=== PATIENT | female | born 1995 | race African-American/Black ===

== ENCOUNTER 2019-05-07 14:51 | Outpatient (CLI) | payer MEDICAID ==
[2019-05-07 15:43] LABS: APPEARANCE,URINE CLEAR; BILIRUBIN,URINE NEGATIVE (NEGATIVE); COLOR,URINE YELLOW; GLUCOSE, URINE NEGATIVE (NEGATIVE); KETONES,URINE 100 mg/dL (NEGATIVE); NITRITE,URINE NEGATIVE (NEGATIVE); PROTEIN,URINE 30 mg/dL (NEGATIVE); URINE SPECIFIC GRAVITY 1.021; UROBILINOGEN,URINE NEGATIVE mg/dL (<2.0)
[2019-05-07 15:44] LABS: LEUKOCYTE ESTERASE,URINE NEGATIVE (NEGATIVE)
[2019-05-07 15:55] LABS: BACTERIA (WET MOUNT) 4+ BACTERIA SEEN; EPITHELIALS (WET MOUNT) 4+ EPITHELIALS SEEN; T.VAGINALIS (WET MOUNT) NO TRICHOMONAS SEEN; WBCS (WET MOUNT) 1+ WBCS SEEN; YEAST (WET MOUNT) NO YEAST SEEN
[2019-05-07 15:56] LABS: URINE AMPHETAMINES SCREEN NEGATIVE; URINE BARBITURATES SCREEN NEGATIVE; URINE BENZODIAZEPINES SCREEN NEGATIVE; URINE COCAINE SCREEN NEGATIVE; URINE MARIJUANA (THC) SCREEN NEGATIVE; URINE METHADONE SCREEN NEGATIVE; URINE PHENCYCLIDINE SCREEN NEGATIVE
[2019-05-07 17:18] LABS: CHLAM PCR NOT DETECTED (NOT DETECT)
--- NOTE | 2019-05-07 18:46 | RADIOLOGY REPORT (SQ) ---
EXAM DESCRIPTION: U/S OB LIMITED COMPLETED DATE/TIME: 05/07/2019 6:18 pm REASON FOR STUDY: cervical length, presentation, Fluid, EFW COMPARISON: None. TECHNIQUE: Limited transabdominal grayscale ultrasound for evaluation of specific requested obstetri caitlyn parameters. LIMITATIONS: None. FINDINGS: CERVICAL LENGTH: 3.1 cm Closed. WILFRID: 17.1 cm. FHR: 169 beats per minute. PRESENTATION: Vertex. PLACENTA: Anterior. LVP: 4.9 EGA: 23 weeks 5 days. EDC: 08/29/2019. BPD: 5.8 cm consistent with gestational age 23 weeks 5 days. HC: 21.6 cm consistent with gestational age 23 weeks 5 days. AC: 19.1 cm consistent with gestational age 23 weeks 5 days. FL: 4.3 cm consistent with gestationa l age 23 weeks 6 days. Average estimated age 23 weeks 5 days. EFW:631 g. IMPRESSION: LIMITED OBSTETRICAL ULTRASOUND WITH MEASURED PARAMETERS DELINEATED ABOVE. Trimester of : Second trimester - 13 weeks 1 day to 27 weeks 6 days. TECHNICAL DOCUMENTATION: JOB ID: [id number] [facility] [facility]- All Rights Reserved Reading location - IP/workstation name: [email or web address]
== END 2019-05-07 18:34 | disposition home or self-care (01) ==
LOC: LC 14:51
PROVIDERS: ATTEND Student in an Organized Health Care Education/Training Program
PROC: 4A1HXCZ Monitoring of Products of Conception, Cardiac Rate, External Approach (ICD-10-PCS; principal; 2019-05-07)
DX: O47.02 False labor before 37 completed weeks of gestation, second trimester (principal); Z3A.23 23 weeks gestation of pregnancy
CPT/HCPCS: 76815; 80307; 81001; 87210; 87491; 87591

== ENCOUNTER 2019-08-19 04:24 | Inpatient (IN) | payer MEDICAID ==
[2019-08-19] MEDS ORDERED: RINGERS SOLUTION,LACTATED 1,000 ML IV PRN (05:21)
[2019-08-19 05:22] LABS: APPEARANCE,URINE SLIGHTLY-CLOUDY; BILIRUBIN,URINE NEGATIVE (NEGATIVE); COLOR,URINE STRAW; GLUCOSE, URINE NEGATIVE (NEGATIVE); KETONES,URINE NEGATIVE (NEGATIVE); LEUKOCYTE ESTERASE,URINE TRACE (NEGATIVE); NITRITE,URINE NEGATIVE (NEGATIVE); PROTEIN,URINE 30 mg/dL (NEGATIVE); URINE SPECIFIC GRAVITY 1.008; UROBILINOGEN,URINE NEGATIVE mg/dL (<2.0)
[2019-08-19 05:38] LABS: URINE AMPHETAMINES SCREEN NEGATIVE; URINE BARBITURATES SCREEN NEGATIVE; URINE BENZODIAZEPINES SCREEN NEGATIVE; URINE COCAINE SCREEN NEGATIVE; URINE MARIJUANA (THC) SCREEN NEGATIVE; URINE METHADONE SCREEN NEGATIVE; URINE PHENCYCLIDINE SCREEN NEGATIVE
[2019-08-19 06:12] LABS: ABSOLUTE LYMPHOCYTES (AUTO) 2.6 10^3/uL (0.5-4.7); ABSOLUTE MONOCYTES (AUTO) 0.6 10^3/uL (0.1-1.4); ABSOLUTE NEUT (AUTO) 5.7 10^3/uL (1.7-8.2); BASOPHILS % (AUTO) 0.3 % (0-2); EOSINOPHILS % (AUTO) 0.4 % (0-6); HEMATOCRIT 27.2 % (36.0-47.0); HEMOGLOBIN 8.5 g/dL (12.0-15.5); LYMPHOCYTES % (AUTO) 29.3 % (13-45); MEAN CORPUSCULAR HEMOGLOBIN 21.2 pg (27.0-33.4); MEAN CORPUSCULAR HGB CONC 31.1 g/dL (32.0-36.0); MEAN CORPUSCULAR VOLUME 68 fl (80-97); MONOCYTES % (AUTO) 6.5 % (3-13); PLATELET COUNT 193 10^3/uL (150-450); RED BLOOD COUNT 3.99 10^6/uL (3.72-5.28); RED CELL DISTRIBUTION WIDTH 18.2 % (11.5-14.0); SEGMENTED NEUTROPHILS % (AUTO) 63.5 % (42-78); TOTAL CELLS COUNTED % (AUTO) 100 %
[2019-08-19] MEDS ORDERED: CEFAZOLIN INJ 1 GM VIAL ONE (06:43)
--- NOTE | 2019-08-19 06:49 | Admission Physical ---
Datetime Report Generated by CPN: 08/19/2019 06:49 CURRENT ADMISSION Chief Complaint: Uterine Contractions Indication for Induction: Not Applicable Admit Impression : Term, Intrauterine Admit Plan: Initiate Section Protocol ALLERGIES Medication Allergies: No Medication Allergies: No Known Allergies (05/07/2019) Latex: No Latex Allergies Food Allergies: no Environmental Allergies: no OBSTETRICAL HISTORY EDC: 08/29/2019 00:00 : 2 Para: 1 Term: 1 : 0 SAB: 0 IAB: 0 Livin Cesareans: 1 Gestational Diabetes: No Rh Sensitization: No Incompetent Cervix: No JOSE M: No Infertility: No ART Treatment: No Uterine Anomaly: No IUGR: No Hx Previous C/S: Yes Macrosomia: No Hx Loss/Stillborn: No PIH: No Hx : No Placenta Previa/Abruption: No Depression/PP Depression: No PTL/PROM: No Post Hemorrhage: No Obstetrical History Comments: G1: 2016 40 wks c/s female pre-eclampsia /anemia on iron SEE RECORDS Alcohol: No Marijuana : No Cocaine: No Other Illicit Drugs: No Cigarettes: Never Smoker. 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 Heart Disease: No Hosp/Surgery: Yes Autoimmune Disorder: No Anesthetic Complications: No Kidney Disease: No Abnormal Pap Smear: No Neuro/Epilepsy: No Psychiatric Disorders: No Other Medical Diseases: No Hepatitis/Liver Disease: No Significant Family History: No Varicosities/Phlebitis: No Trauma/Violence : No Thyroid Dysfunction: No INFECTIOUS HISTORY Gonorrhea: No Genital Herpes: No Chlamydia: No Tuberculosis: No Syphilis: No Hepatitis: No HIV/AIDS Exposure: No Rash or Viral Illness: No HPV: No PHYSICAL EXAM General: Normal HEENT: Normal Neurologic: Normal Thyroid: Normal Heart: Normal Lungs: Deferred Breast: Normal Back: Normal Abdomen: Normal Genitourinary Exam: Normal Extremities: Normal DTRs: Normal Pelvic Type: Adequate FETUS A EGA: 38.4 PLANS FOR LABOR AND DELIVERY Labor and Delivery: None Pain Management: Spinal Feeding Preference: Formula Benefit of Breast Feed Discussed: Yes Circumcision: No INFORMED CONSENT Signature: with User ID: [email or web address]
[2019-08-19] MEDS ORDERED: PHENYLEPHRINE HCL INJ/PF 10 MG/1 ML SDV ONE (06:56)
[2019-08-19] MEDS ORDERED: OXYTOCIN 10 UNIT/ML VIAL ONE (06:56)
[2019-08-19] MEDS ORDERED: ONDANSETRON HCL INJ/PF 4 MG/2 ML SDV ONE (06:56)
[2019-08-19] MEDS ORDERED: CITRIC ACID/SODIUM CITRATE ORAL SOLN 15 ML UDCUP ONE (06:57)
[2019-08-19] MEDS ORDERED: AZITHROMYCIN 500 MG in DEXTROSE 5%-WATER 250 ML IV PRN (07:30)
[2019-08-19] MEDS ORDERED: DEXTROSE 40% GEL 15 GM TUBE PO PRN ×2 (07:32)
[2019-08-19] MEDS ORDERED: PROMETHAZINE HCL INJ 25 MG/1 ML VIAL IV PRN (07:32)
[2019-08-19] MEDS ORDERED: OXYTOCIN/NORMAL SALINE 20 UNIT/1,000 ML RTUINJ IV PRN (07:32)
[2019-08-19] MEDS ORDERED: DEXTROSE 50%-WATER 25 GM/50 ML DISP.SYRIN IV PRN ×2 (07:32)
[2019-08-19] MEDS ORDERED: ACETAMINOPHEN 325 MG TABLET PO PRN (07:32)
[2019-08-19] MEDS ORDERED: OXYCODONE-ACETAMINOPHEN 5-325 MG TABLET PO PRN (07:32)
[2019-08-19] MEDS ORDERED: ACETAMINOPHEN 1,000 MG/100 ML RTUPB IV PRN (07:32)
[2019-08-19] MEDS ORDERED: MEASLES,MUMPS&RUBELLA VACC/PF 0.5 ML VIAL SUBCUT PRN (07:32)
[2019-08-19] MEDS ORDERED: SIMETHICONE 80 MG TAB.CHEW PO PRN (07:32)
[2019-08-19] MEDS ORDERED: DIPH/PERTUSS(ACELL)/TETANUS VAC/PF 0.5 ML SYR (>=10YO) IM PRN (07:32)
[2019-08-19] MEDS ORDERED: GLUCAGON,HUMAN RECOMB 1 MG INJ SUBCUT PRN (07:32)
--- NOTE | 2019-08-19 07:32 | Operative Report ---
Operative Report DATE OF SURGERY: 08/19/19 PREOPERATIVE DIAGNOSIS: IUP at term prior section in labor POSTOPERATIVE DIAGNOSIS: Same OPERATION: Repeat low transverse section delivery of viable infant SURGEON: SAMMY JUÁREZ ANESTHESIA: Spinal TISSUE REMOVED OR ALTERED: Placenta COMPLICATIONS: None PROCEDURE: The patient was taken to the operating room where spinal anesthesia was obtained and found to be adequate. She was then prepped and draped in the normal sterile fashion and placed in the dorsal supine position with a leftward tilt. A Pfannenstiel skin incision was then made and carried through to the underlying layers of the fascia with the scalpel. The fascia was incised in the midline and the incision extended laterally with the Levin scissors. The superior aspect of the fascial incision was then grasped with Jackson clamps elevated and the underlying rectus muscles dissected off bluntly. Attention was then turned to the inferior aspect of the fascial incision which in a similar fashion was grasped, tented up with Eriberto clamps, and the rectus muscles dissected off bluntly. The rectus muscles were then in the midline and the peritoneum at the amount identified and entered bluntly. The peritoneal incision was then extended superiorly and inferiorly with good visualization of the bladder. [The bladder blade was inserted and the vesicouterine peritoneum identified grasped with [place] pickups and entered sharply with the Metzenbaum scissors. His incision was then extended laterally with the Metzenbaum scissors and a bladder flap created digitally. The bladder blade was then reinserted and the lower uterine segment incised in a transverse fashion with the scalpel. The uterine incision was then extended bluntly. The bladder blade was removed and the infant's head was delivered from cephalic presentation atraumatically. The nose and mouth were suctioned and the cord doubly clamped and cut. And the was handed off to waiting pediatricians. The placenta was then delivered manully and the uterus exteriorized and cleared of all clots and debris. The uterine incision was then repaired with 1-0 Vicryl in a running locked fashion. A second layer of the same suture was used to obtain hemostasis via imbrication of the initial layer. The uterus was returned to the patient's abdomen. The gutters were cleared of all clots and debris. All operative sites were noted to be hemostatic. The fascia was reapproximated with 0 Vicryl in a running fashion from each lateral edge to the midline. The patient tolerated the procedure well. Sponge lap needle and instrument counts are correct -2. 2 g of Ancef were given prior to skin incision. The patient was taken to the recovery area awake and in stable condition.
[2019-08-19] MEDS ORDERED: CEFAZOLIN SODIUM 1 GM in DEXTROSE 5%-WATER 50 ML IV PRN (08:00)
[2019-08-19] MEDS ORDERED: ACETAMINOPHEN 1,000 MG/100 ML RTUPB IV ONE (08:01)
[2019-08-19] MEDS ORDERED: OXYTOCIN/NORMAL SALINE 20 UNIT/1,000 ML RTUINJ ONE (08:03)
[2019-08-19] MEDS ORDERED: MORPHINE SULFATE 10 MG/ML INJ ONE (08:28)
[2019-08-19] MEDS: PRENATAL VITAMIN W DHA CAPSULE PO SCH (10:28)
[2019-08-19] MEDS: DOCUSATE SODIUM 100 MG CAPSULE PO SCH ×2 (10:28→17:28)
[2019-08-19] MEDS ORDERED: HYDROMORPHONE HCL INJ/PF 2 MG/ML AMPULE ONE (11:40)
[2019-08-19] MEDS ORDERED: HYDROMORPHONE HCL INJ/PF 2 MG/ML AMPULE IV PRN (11:54)
[2019-08-19] MEDS: KETOROLAC TROMETHAMINE INJ/PF 30 MG/1 ML SDV IV SCH ×2 (14:30→21:11)
[2019-08-20] MEDS: KETOROLAC TROMETHAMINE INJ/PF 30 MG/1 ML SDV IV SCH (07:03)
[2019-08-20] MEDS ORDERED: INFLUENZA QUAD (6MOS+) 2019-20 VAC 0.5 ML SYR IM ONE (08:00)
[2019-08-20 10:25] LABS: ABSOLUTE EOSINOPHILS # (AUTO) 0.1 10^3/uL (0.0-0.6); ABSOLUTE LYMPHOCYTES (AUTO) 1.9 10^3/uL (0.5-4.7); ABSOLUTE MONOCYTES (AUTO) 0.9 10^3/uL (0.1-1.4); ABSOLUTE NEUT (AUTO) 12.2 10^3/uL (1.7-8.2); BASOPHILS % (AUTO) 0.2 % (0-2); EOSINOPHILS % (AUTO) 0.4 % (0-6); HEMATOCRIT 24.3 % (36.0-47.0); LYMPHOCYTES % (AUTO) 12.6 % (13-45); MEAN CORPUSCULAR HGB CONC 30.5 g/dL (32.0-36.0); MEAN CORPUSCULAR VOLUME 69 fl (80-97); MONOCYTES % (AUTO) 5.9 % (3-13); PLATELET COUNT 185 10^3/uL (150-450); RED BLOOD COUNT 3.53 10^6/uL (3.72-5.28); RED CELL DISTRIBUTION WIDTH 18.8 % (11.5-14.0); SEGMENTED NEUTROPHILS % (AUTO) 80.9 % (42-78); TOTAL CELLS COUNTED % (AUTO) 100 %; WHITE BLOOD COUNT 15.1 10^3/uL (4.0-10.5)
[2019-08-20 10:28] LABS: HEMOGLOBIN 7.4 g/dL (12.0-15.5)
[2019-08-20] MEDS: PRENATAL VITAMIN W DHA CAPSULE PO SCH (10:43)
[2019-08-20] MEDS: DOCUSATE SODIUM 100 MG CAPSULE PO SCH ×2 (10:43→17:28)
--- NOTE | 2019-08-20 11:01 | PDOC PROGRESS REPORT ---
Subjective-OB Progress Note for:: 08/20/19 Subjective: Post CS day 1, doing well, no concerns. She is eating breakfast, reports light bleeding, +flatus and voiding without difficulty. Physical Exam (OB) Vital Signs: Temp Pulse Resp BP Pulse Ox 98.5 F 81 16 120/70 100 08/20/19 08:11 08/20/19 08:11 08/20/19 08:11 08/20/19 08:11 08/20/19 08:11 Intake & Output 08/19/19 08/20/19 08/21/19 06:59 06:59 06:59 Output Total 1800 Balance -1800 Weight 50 kg - PIH/Pre-Eclampsia DTR's: 1 + Clonus: Negative Headache: Absent Epigastric Pain: No Visual Changes: No - Dressing Removed: Yes - cleaned with saline and loose ABD placed d/t small amount of drainage Incision: Dressing Closure Type: Surgical Glue - Lochia Lochia Amount: Small 10-25 ml Lochia Color: Rubra/Red - Abdomen Description: Soft, Round Hernia Present: No Fundal Description: Firm, Midline Fundal Height: u/u - u/2 Objective-Diagnostic Laboratory: 08/20/19 10:08 08/20/19 10:08 WBC 15.1 H RBC 3.53 L Hgb 7.4 L Hct 24.3 L MCV 69 L MCH 21.0 L MCHC 30.5 L RDW 18.8 H Plt Count 185 Seg Neutrophils % 80.9 H Assessment and Plan(PN) - Assessment and Plan (1) S/P section Is this a current diagnosis for this admission?: Yes - Time Spent with Patient Time with patient: Less than 15 minutes Medications reviewed and adjusted accordingly: Yes - Disposition Anticipated Discharge: Home Within: within 24 hours
[2019-08-20] MEDS: IBUPROFEN 800 MG TABLET PO SCH ×3 (12:13→23:22)
[2019-08-21] MEDS: IBUPROFEN 800 MG TABLET PO SCH ×2 (05:41→11:24)
[2019-08-21] MEDS: DOCUSATE SODIUM 100 MG CAPSULE PO SCH (09:39)
[2019-08-21] MEDS: PRENATAL VITAMIN W DHA CAPSULE PO SCH (09:40)
[2019-08-21 11:48] VITALS: BP 130/84
--- NOTE | 2019-08-21 12:30 | PDOC DISCHARGE SUMMARY ---
Impression - Admit/DC Date/PCP Admission Date/Primary Care Provider: 08/19/19 05:19 SAMMY JÁUREZ MD Discharge Date: 08/21/19 - Discharge Diagnosis (1) S/P section Is this a current diagnosis for this admission?: Yes - Additional Information Resuscitation Status: Full Code Discharge Diet: Regular Discharge Activity: Balance Activity w/Rest, Pelvic Rest Referrals: SAMMY JUÁREZ MD [Primary Care Provider] - Prescriptions: Oxycodone HCl/Acetaminophen [Percocet 5-325 mg Tablet] 1 tab PO Q4HP PRN #30 tablet PRN Reason: Ibuprofen [Motrin 800 mg Tablet] 800 mg PO Q6HP PRN #60 tablet PRN Reason: Docusate Sodium [Colace 100 mg Capsule] 100 mg PO BID #60 capsule Home Medications: No122/Iron/Folic Acid [ Multi Tablet] 1 tab PO DAILY 05/07/19 Docusate Sodium [Colace 100 mg Capsule] 100 mg PO BID #60 capsule 08/21/19 Ibuprofen [Motrin 800 mg Tablet] 800 mg PO Q6HP PRN #60 tablet 08/21/19 Oxycodone HCl/Acetaminophen [Percocet 5-325 mg Tablet] 1 tab PO Q4HP PRN #30 tablet 08/21/19 Results Laboratory Results: WBC 15.1 10^3/uL (4.0-10.5) H 08/20/19 10:08 RBC 3.53 10^6/uL (3.72-5.28) L 08/20/19 10:08 Hgb 7.4 g/dL (12.0-15.5) L 08/20/19 10:08 Hct 24.3 % (36.0-47.0) L 08/20/19 10:08 MCV 69 fl (80-97) L 08/20/19 10:08 MCH 21.0 pg (27.0-33.4) L 08/20/19 10:08 MCHC 30.5 g/dL (32.0-36.0) L 08/20/19 10:08 RDW 18.8 % (11.5-14.0) H 08/20/19 10:08 Plt Count 185 10^3/uL (150-450) 08/20/19 10:08 Lymph % (Auto) 12.6 % (13-45) L 08/20/19 10:08 [place] % (Auto) 5.9 % (3-13) 08/20/19 10:08 Eos % (Auto) 0.4 % (0-6) 08/20/19 10:08 Baso % (Auto) 0.2 % (0-2) 08/20/19 10:08 Absolute Neuts (auto) 12.2 10^3/uL (1.7-8.2) H 08/20/19 10:08 Absolute Lymphs (auto) 1.9 10^3/uL (0.5-4.7) 08/20/19 10:08 Absolute Monos (auto) 0.9 10^3/uL (0.1-1.4) 08/20/19 10:08 Absolute Eos (auto) 0.1 10^3/uL (0.0-0.6) 08/20/19 10:08 Absolute Basos (auto) 0.0 10^3/uL (0.0-0.2) 08/20/19 10:08 Seg Neutrophils % 80.9 % (42-78) H 08/20/19 10:08 Urine Color STRAW 08/19/19 04:50 Urine Appearance SLIGHTLY-CLOUDY 08/19/19 04:50 Urine pH 7.0 (5.0-9.0) 08/19/19 04:50 Ur Specific [place] 1.008 08/19/19 04:50 Urine Protein 30 mg/dL (NEGATIVE) H 08/19/19 04:50 Urine Glucose (UA) NEGATIVE mg/dL (NEGATIVE) 08/19/19 04:50 Urine Ketones NEGATIVE mg/dL (NEGATIVE) 08/19/19 04:50 Urine Blood MODERATE (NEGATIVE) H 08/19/19 04:50 Urine Nitrite NEGATIVE (NEGATIVE) 08/19/19 04:50 Urine Bilirubin NEGATIVE (NEGATIVE) 08/19/19 04:50 Urine Urobilinogen NEGATIVE mg/dL (<2.0) 08/19/19 04:50 Ur Leukocyte Esterase TRACE (NEGATIVE) H 08/19/19 04:50 Urine Ascorbic Acid NEGATIVE (NEGATIVE) 08/19/19 04:50 Urine Opiates Screen NEGATIVE 08/19/19 04:50 Urine Methadone Screen NEGATIVE 08/19/19 04:50 Ur Barbiturates Screen NEGATIVE 08/19/19 04:50 Ur Phencyclidine Scrn NEGATIVE 08/19/19 04:50 Ur Amphetamines Screen NEGATIVE 08/19/19 04:50 U Benzodiazepines Scrn NEGATIVE 08/19/19 04:50 Urine Cocaine Screen NEGATIVE 08/19/19 04:50 U Marijuana (THC) Screen NEGATIVE 08/19/19 04:50 RPR NONREACTIVE (NONREACTIVE) 08/19/19 05:46 Blood Type O POSITIVE 08/19/19 05:46 Antibody Screen NEGATIVE 08/19/19 05:46
--- NOTE | 2019-08-24 10:36 | Delivery Summary ---
Del Sum A-C Datetime Report Generated by CPN: 08/24/2019 10:36 DELIVERY PERSONNEL DELIVERY PERSONNEL: [id number] Delivery Doctor:: Trace Beard MD GRANTS ASSISTANT:: Luis Miguel Sharda, GRANTS ASSISTANT Diabetes Specialist:: Shey Chandler, RN Veneer Jointer/CERTIFIED WELDING INSPECTOR: Isi Gauthier, MEDICAL FIELD REPRESENTATIVE Veneer Jointer/CERTIFIED WELDING INSPECTOR: Tierney Linton, ST MATERNAL INFORMATION Delivery Anesthesia: Spinal Medications After Delivery: Pitocin Drip 20 Units/1000ml NSS Maternal Complications: None LABOR SUMMARY EDC: 08/29/2019 00:00 LABOR INFORMATION Reason for Induction: Not Applicable Group B Beta Strep: pos Steroids Given: None Reason Steroids Not Administered: Not Applicable STAGES OF LABOR Stage 3 hr: 0 Stage 3 min: 31 VAGINAL DELIVERY Episiotomy: None Laceration #1: None Laceration Repair: Not Applicable CSECTION DELIVERY Primary Indication: Repeat Elective Secondary Indication: N/A CSection Urgency: Non-Scheduled CSection Incidence: Repeat Labor: Labor Elective: Elective CSection Incision: Lower Uterine Transverse BABY A INFORMATION Delivery Date/Time: 08/19/2019 07:13 Method of Delivery: Born in Route : No : N/A Forceps: N/A Vacuum Extraction: N/A Shoulder Dystocia : No PRESENTATION/POSITION BABY A Presentation: Cephalic Cephalic Presentation: Vertex PLACENTA INFORMATION BABY A Placenta Delivery Time : 08/19/2019 07:44 Placenta Method of Delivery: Manual Removal Placenta Status: Delivered SCORES BABY A Heart Rate 1 min: >100 bpm Resp Effort 1 min: Good Cry Reflex Irritability 1 min: Cough or Sneeze or Pulls Away Muscle Tone 1 min: Active Motion Color 1 min: Blue/Pale Resuscitation Effort 1 min: Tactile Stimulation SCORE 1 MIN: 8 Heart Rate 5 min: >100 bpm Resp Effort 5 min: Good Cry Reflex Irritability 5 min: Cough or Sneeze or Pulls Away Muscle Tone 5 min: Active Motion Color 5 min: Body [place], Extremities Blue Resuscitation Effort 5 min: Tactile Stimulation SCORE 5 MIN: 9 INFORMATION BABY A Gestational Age at Delivery: 38.4 Gestational Status: Early Term- 37- 38.6 Weeks Infant Outcome : Liveborn Infant Condition : Stable Sex: Male IDENTIFICATION BABY A Verification Date/Time: 08/19/2019 07:30 ID Band Number: [id number] Mother's Name Verified: Yes RN Verifying Infant: H. Chandler, RN WEIGHT/LENGTH BABY A Birthweight (gm): 2890 Weight (lb): 6 Weight (oz): 6 Length (in): 19.50 Infant Length (cm): 49.53 CORD INFORMATION BABY A No. Cord Vessels: 3 Nuchal Cord : Around Neck x1, Loose Cord Blood Taken: Yes-For Eval (Mom's Blood Type - or O+) Infant Suction: None ASSESSMENT BABY A Complications: None Physical Findings at Delivery: Within Normal Limits Transferred To: Nursery SIGNATURES Signature: with User ID: [email or web address]
== END 2019-08-21 14:35 | disposition home or self-care (01) | DRG 788 ==
LOC: LC 04:24 → LR 05:19 → 2N 09:21
PROVIDERS: ADMIT Obstetrics & Gynecology Gynecology; ATTEND Obstetrics & Gynecology Gynecology
PROC: 10D00Z1 Extraction of Products of Conception, Low, Open Approach (ICD-10-PCS; principal; 2019-08-19)
DX: O34.211 Maternal care for low transverse scar from previous cesarean delivery (principal); O99.824 Streptococcus B carrier state complicating childbirth; O69.81X0 Labor and delivery complicated by cord around neck, without compression, not applicable or unspecified; N85.8 Other specified noninflammatory disorders of uterus; Z3A.38 38 weeks gestation of pregnancy; Z37.0 Single live birth
CPT/HCPCS: 1961; 36415; 80307; 81005; 85025; 86592; 86850; 86900; 86901; 90686; 94799; J0131; J0690; J1170; J1885; J2270; J2370; J2405; J2590; J3490; J7120

== ENCOUNTER 2019-12-04 12:14 | Emergency (ER) | payer SELFPAY ==
--- NOTE | 2019-12-04 13:06 | ER Document Report ---
ED Medical Screen (RME) - General Chief Complaint: Vaginal Bleeding Stated Complaint: VAGINAL BLEEDING Time Seen by Provider: 12/04/19 13:01 Primary Care Provider: SAMMY JUÁREZ MD [Primary Care Provider] - Follow up as needed Mode of Arrival: Ambulatory Information source: Patient Notes: 24-year-old female presents emergency department with reports of heavy menses bleeding for 2 months. Reports at times she will go through 2 super long pads an hour. Reports she had a in August. Received a Deppe shot September. Denies fever shortness of breath weakness. Reports she does not have a history of heavy menses. Patient does have an appointment with her PREFLIGHT MECHANIC on . I have greeted and performed a rapid initial assessment of this patient. A comprehensive ED assessment and evaluation of the patient, analysis of test results and completion of the medical decision making process will be conducted by additional ED providers. TRAVEL OUTSIDE OF THE [place] IN LAST 30 DAYS: No - Related Data Allergies/Adverse Reactions: No Known Allergies Allergy (Verified 12/04/19 12:56) Physical Exam - Vital signs Vitals: Temp Pulse Resp BP Pulse Ox 97.5 F 86 20 134/87 H 100 12/04/19 12:15 12/04/19 12:15 12/04/19 12:15 12/04/19 12:15 12/04/19 12:15 Course - Vital Signs Vital signs: Temp Pulse Resp BP Pulse Ox 97.5 F 86 20 134/87 H 100 12/04/19 12:15 12/04/19 12:15 12/04/19 12:15 12/04/19 12:15 12/04/19 12:15 Doctor's Discharge - Discharge Referrals: SAMMY JUÁREZ MD [Primary Care Provider] - Follow up as needed
[2019-12-04 14:16] LABS: APPEARANCE,URINE SLIGHTLY-CLOUDY; BILIRUBIN,URINE NEGATIVE (NEGATIVE); COLOR,URINE YELLOW; GLUCOSE, URINE NEGATIVE (NEGATIVE); KETONES,URINE NEGATIVE (NEGATIVE); LEUKOCYTE ESTERASE,URINE MODERATE (NEGATIVE); NITRITE,URINE NEGATIVE (NEGATIVE); PROTEIN,URINE 30 mg/dL (NEGATIVE); URINE SPECIFIC GRAVITY 1.026; UROBILINOGEN,URINE NEGATIVE mg/dL (<2.0)
[2019-12-04 14:28] LABS: ABSOLUTE EOSINOPHILS # (AUTO) 0.1 10^3/uL (0.0-0.6); ABSOLUTE LYMPHOCYTES (AUTO) 2.5 10^3/uL (0.5-4.7); ABSOLUTE MONOCYTES (AUTO) 0.4 10^3/uL (0.1-1.4); ABSOLUTE NEUT (AUTO) 3.6 10^3/uL (1.7-8.2); BASOPHILS % (AUTO) 0.3 % (0-2); EOSINOPHILS % (AUTO) 0.9 % (0-6); HEMATOCRIT 37.8 % (36.0-47.0); HEMOGLOBIN 12.2 g/dL (12.0-15.5); LYMPHOCYTES % (AUTO) 38.3 % (13-45); MEAN CORPUSCULAR HEMOGLOBIN 23.8 pg (27.0-33.4); MEAN CORPUSCULAR HGB CONC 32.2 g/dL (32.0-36.0); MEAN CORPUSCULAR VOLUME 74 fl (80-97); MONOCYTES % (AUTO) 6.7 % (3-13); PLATELET COUNT 270 10^3/uL (150-450); RED BLOOD COUNT 5.12 10^6/uL (3.72-5.28); RED CELL DISTRIBUTION WIDTH 19.5 % (11.5-14.0); SEGMENTED NEUTROPHILS % (AUTO) 53.8 % (42-78); TOTAL CELLS COUNTED % (AUTO) 100 %; WHITE BLOOD COUNT 6.6 10^3/uL (4.0-10.5)
--- NOTE | 2019-12-04 14:33 | RADIOLOGY REPORT (SQ) ---
EXAM DESCRIPTION: U/S NON OB PEL TV W/DOPPLER COMPLETED DATE/TIME: 12/04/2019 2:25 pm REASON FOR STUDY: heavy bleeding x 2 months COMPARISON: None. TECHNIQUE: Dynamic and static grayscale images acquired of the pelvis via transvaginal approach and recorded on PACS. Additional selected color Doppler and spectral images recorded. LIMITATIONS: None. FINDINGS: UTERUS: Contour normal. No mass. ENDOMETRIAL STRIPE: No focal or generalized thickening. No masses. CERVIX: No nabothian cysts. RIGHT OVARY AND DOPPLER: Ovary not visualized. LEFT OVARY AND DOPPLER: Normal size. No worrisome masses. Normal arterial vascular flow without evide nce for torsion. FREE FLUID: Trace OTHER: No other significant finding. MEASUREMENTS: UTERUS: 6 cm ENDOMETRIAL STRIPE: 7.6 mm RIGHT OVARY: Not visualized. LEFT OVARY: 3 cm IMPRESSION: NORMAL TRANSVAGINAL PELVIC ULTRASOUND. Right ovary not identified. TECHNICAL DOCUMENTATION: JOB ID: [id number] [employer]- All Rights Reserved Rev-03/19 Reading location - IP/workstation name: [email or web address]
[2019-12-04 14:40] LABS: ALBUMIN 4.5 g/dL (3.5-5.0); ALKALINE PHOSPHATASE 90 U/L (38-126); ANION GAP 9 (5-19); ASPARTATE AMINO TRANSFERASE 21 U/L (14-36); BILIRUBIN,TOTAL 0.2 mg/dL (0.2-1.3); BLOOD UREA NITROGEN 10 mg/dL (7-20); CALCIUM 9.6 mg/dL (8.4-10.2); CARBON DIOXIDE 23 mmol/L (22-30); CHLORIDE 108 mmol/L (98-107); GLUCOSE 85 mg/dL (75-110); POTASSIUM 4.3 mmol/L (3.6-5.0); TOTAL PROTEIN 7.6 g/dL (6.3-8.2)
--- NOTE | 2019-12-04 15:14 | ER Document Report ---
ED General - General Chief Complaint: Vaginal Bleeding Stated Complaint: VAGINAL BLEEDING Time Seen by Provider: 12/04/19 13:01 Primary Care Provider: SAMMY JUÁREZ MD [Primary Care Provider] - 12/08/19 Mode of Arrival: Ambulatory Notes: 24-year-old female presents for vaginal bleeding since October 14. Patient states that intermittently heavy and sometimes light. Patient states she had a delivery in August and was given a Depo shot in September. Patient denies any fever, dyspnea, chest pain, weakness, nausea/vomiting, dizziness. Patient also denies any diarrhea constipation, dysuria, frequency/urgency. Patient states she will intermittently have some abdominal cramping but denies any pain. TRAVEL OUTSIDE OF THE [place] IN LAST 30 DAYS: No - Related Data Allergies/Adverse Reactions: No Known Allergies Allergy (Verified 12/04/19 12:56) Past Medical History - General Information source: Patient - Social History Smoking Status: Never Smoker Family History: None Patient has suicidal ideation: No Patient has homicidal ideation: No Review of Systems - Review of Systems Notes: Constitutional: Negative for fever. HENT: Negative for sore throat. Eyes: Negative for visual changes. Cardiovascular: Negative for chest pain. Respiratory: Negative for shortness of breath. Gastrointestinal: Negative for abdominal pain, vomiting or diarrhea. Genitourinary: Positive for vaginal bleeding. Negative for dysuria. Musculoskeletal: Negative for back pain. Skin: Negative for rash. Neurological: Negative for headaches, weakness or numbness. 10 point ROS negative except as marked above and in HPI. Physical Exam - Vital signs Vitals: Temp Pulse Resp BP Pulse Ox 97.5 F 86 20 134/87 H 100 12/04/19 12:15 12/04/19 12:15 12/04/19 12:15 12/04/19 12:15 12/04/19 12:15 - Notes Notes: GENERAL: Well-appearing, well-nourished and in no acute distress. HEAD: Atraumatic, normocephalic. EYES: Extraocular movements intact, sclera anicteric, conjunctiva are normal. NECK: Normal range of motion, supple without lymphadenopathy or JVD. ABDOMEN: Soft, nontender. No guarding, no rebound. No masses appreciated. PELVIC: Declined EXTREMITIES: Normal range of motion, no pitting or edema. No clubbing or cyanosis. NEUROLOGICAL: Cranial nerves II through XII grossly intact. Normal speech, normal gait. PSYCH: Normal mood, normal affect. SKIN: Warm, Dry, normal turgor, no rashes or lesions noted. Course - Re-evaluation Re-evalutation: 12/04/19 24-year-old female presents with vaginal bleeding for 2 months. Intermittently heavy and light. Pt is on iron supplements. Patient recently had a in August and was started on Depo-Provera in September. Patient s tates associated intermittent abdominal cramping. Patient denies any chest pain, dyspnea, generalized weakness, fever, nausea/vomiting, or urinary symptoms. Patient's declined pelvic states she has not a follow-up appointment with her SEWAGE DISPOSAL ENGINEER on . Patient's hemoglobin is within normal limits at 12.2. Lab work is otherwise unremarkable. UA shows moderate leuk esterase and 54 WBCs. Pt states she does not have any UTI symptoms so will send for culture and then call in antibiotic if needed. Declines pelvic at this time. US is negative. Pt encouraged to keep appointment with SEWAGE DISPOSAL ENGINEER and given strict return precautions. Pt voices understanding and agrees with plan of care. - Vital Signs Vital signs: Temp Pulse Resp BP Pulse Ox 97.5 F 86 20 134/87 H 100 12/04/19 12:15 12/04/19 12:15 12/04/19 12:15 12/04/19 12:15 12/04/19 12:15 - Laboratory Result Diagrams: 12/04/19 14:04 12/04/19 14:04 Laboratory results interpreted by me: 12/04/19 12/04/19 12/04/19 13:36 14:04 14:04 MCV 74 L MCH 23.8 L RDW 19.5 H Chloride 108 H Urine Protein 30 H Urine Blood LARGE H Ur Leukocyte Esterase MODERATE H Discharge - Discharge Clinical Impression: Vaginal bleeding Condition: Stable Disposition: HOME, SELF-CARE Additional Instructions: Your ultrasound was normal. Your hemoglobin today was normal at 12.2. Please follow-up with your MEDICAL ASSISTANT on as scheduled. Return immediately to ER for any worsening symptoms including dizziness, feeling like you are going to pass out, passing out, chest pain, shortness of breath, increased vaginal bleeding, passing blood clots, abdominal pain, pelvic pain, fever, or any other symptoms that are concerning to you. Referrals: JUÁREZ,SAMMY, MD [Primary Care Provider] - 12/08/19
[2019-12-04 15:28] VITALS: BP 113/71
== END 2019-12-04 15:30 | disposition home or self-care (01) ==
LOC: ER 12:14
DX: N93.8 Other specified abnormal uterine and vaginal bleeding (principal)
CPT/HCPCS: 36415; 76830; 80053; 81001; 84703; 85025; 87086; 93976; 99284

== ENCOUNTER 2020-08-03 12:10 | Emergency (ER) | payer SELFPAY ==
[2020-08-03 12:36] VITALS: BP 122/68
--- NOTE | 2020-08-03 12:54 | ER Document Report ---
HPI - HPI Patient complains to provider of: Urinary symptoms Time Seen by Provider: 08/03/20 12:50 Onset: Yesterday Quality of pain: No pain Pain Level: Denies Context: Patient presents complaining of urinary frequency that started yesterday. Patient denies any fever, nausea or vomiting. Patient denies any dysuria. Patient denies any abdominal pain or flank pain. Associated Symptoms: Other - Urinary frequency Exacerbated by: Denies Relieved by: Denies Similar symptoms previously: No Recently seen / treated by doctor: No - ROS ROS below otherwise negative: Yes Systems Reviewed and Negative: Yes All other systems reviewed and negative - CONSTITUTIONAL Constitutional: DENIES: Fever - URINARY Urinary: REPORTS: Frequency. DENIES: Dysuria, Urgency - REPRODUCTIVE Reproductive: DENIES: : - MUSCULOSKELETAL Musculoskeletal: DENIES: Back Pain - DERM Skin Color: Normal Skin Problems: None Past Medical History - General Information source: Patient - Social History Smoking Status: Never Smoker Frequency of alcohol use: None Drug Abuse: None Occupation: [employer] Family History: None - Medical History Medical History: Negative Surgical Hx: Negative Vertical Provider Document - CONSTITUTIONAL Agree With Documented VS: Yes Exam Limitations: No Limitations General Appearance: WD/WN, No Apparent Distress - INFECTION CONTROL TRAVEL OUTSIDE OF THE [place] IN LAST 30 DAYS: No - HEENT HEENT: Atraumatic, Normocephalic - NECK Neck: Normal Inspection - RESPIRATORY Respiratory: Breath Sounds Normal, No Respiratory Distress - CARDIOVASCULAR Cardiovascular: Regular Rate, Regular Rhythm - GI/ABDOMEN Gastrointestinal: Abdomen Soft, Abdomen Non-Tender - BACK Back: Normal Inspection. negative: CVA Tenderness-Right, CVA Tenderness-Left - MUSCULOSKELETAL/EXTREMETIES Musculoskeletal/Extremeties: MAEW - NEURO Level of Consciousness: Awake, Alert, Appropriate Motor/Sensory: No Motor Deficit - DERM Integumentary: Warm, Dry, No Rash Course - Re-evaluation Re-evalutation: 08/03/20 13:36 Patient with UTI, no concern for pyelonephritis or obstructive uropathy at this time. Patient nontoxic in appearance. - Vital Signs Vital signs: Temp Pulse Resp BP Pulse Ox 98.2 F 82 16 122/68 100 08/03/20 12:35 08/03/20 12:35 08/03/20 12:35 08/03/20 12:35 08/03/20 12:35 - Laboratory Laboratory results interpreted by me: 08/03/20 13:36 Labs- All tests 24 hr 08/03/20 12:53 Urine Color ESTELLE Urine Appearance CLOUDY Urine pH 6.0 Ur Specific [place] 1.020 Urine Protein 100 H Urine Glucose (UA) NEGATIVE Urine Ketones TRACE H Urine Blood SMALL H Urine Nitrite POSITIVE H Urine Bilirubin NEGATIVE Urine Urobilinogen 2.0 H Ur Leukocyte Esterase LARGE H Urine WBC (Auto) 161 Urine RBC (Auto) 9 Urine Bacteria (Auto) 2+ Urine WBC Clumps FEW Squamous Epi Cells Auto 6 U Non-Squamous Epis Auto 2 Urine Mucus (Auto) MOD Urine Ascorbic Acid NEGATIVE Discharge - Discharge Clinical Impression: Urinary frequency UTI (urinary tract infection) Qualifiers: Urinary tract infection type: site unspecified Hematuria presence: with hematuria Qualified Code(s): N39.0 - Urinary tract infection, site not specified Condition: Stable Disposition: HOME, SELF-CARE Instructions: Cephalexin ([facility]), Urinary Anesthetic Agent ([facility]), Urinary Tract Infection ([facility]) Additional Instructions: Return immediately for any new or worsening symptoms Followup with your primary care provider, call tomorrow to make a followup appointment Prescriptions: Cephalexin Monohydrate [Keflex 500 mg Capsule] 500 mg PO Q6H 5 Days #20 capsule Phenazopyridine HCl [Pyridium 200 mg Tablet] 200 mg PO TID #15 tablet Forms: Return to Work Referrals: [facility] [Provider Group] - Follow up as needed
[2020-08-03 13:16] LABS: APPEARANCE,URINE CLOUDY; BILIRUBIN,URINE NEGATIVE (NEGATIVE); COLOR,URINE AMBER; GLUCOSE, URINE NEGATIVE (NEGATIVE); KETONES,URINE TRACE mg/dL (NEGATIVE); LEUKOCYTE ESTERASE,URINE LARGE (NEGATIVE); NITRITE,URINE POSITIVE (NEGATIVE); PROTEIN,URINE 100 mg/dL (NEGATIVE)
[2020-08-03] MEDS ORDERED: PHENAZOPYRIDINE HCL 200 MG TABLET PO ONE (13:35)
[2020-08-03] MEDS ORDERED: CEPHALEXIN 500 MG CAPSULE PO ONE (13:35)
== END 2020-08-03 13:52 | disposition home or self-care (01) ==
LOC: ER 12:10
DX: N39.0 Urinary tract infection, site not specified (principal); R31.9 Hematuria, unspecified; R35.0 Frequency of micturition
CPT/HCPCS: 99283; 87086; 87088; 81001; 87186; J3490

== ENCOUNTER → 2020-08-10 | Outpatient (CLI) | payer SELFPAY ==
--- NOTE | 2020-08-10 09:49 | ER RDC ASSESSMENT REPORT ---
Intake - In the Last 14 days Have you traveled outside [place]?: No Have you been in close contact with someone CONFIRMED: Yes Worked in Healthcare?: No - Symptoms Subjective Fever([place] feverish): No Chills: No Muscule Aches: No Runny Nose: No Sore Throat: No Cough (New or worsening chronic cough): No Shortness of breath: No Nausea or Vomiting: No Headache: No Abdominal Pain: No Diarrhea(3 or more loose stools in last 24 hours): No - Do you have any of the following Chronic lung disease: Asthma or emphysema or COPD: No Cystic Fibrosis: No Diabetes: No High Blood Pressure: No Cardiovascular Disease: No Chronic Kidney Disease: No Chronic Liver Disease: No Chronic blood disorder like Sickle Cell Disease: No Weak immune system due to disease or medication: No Neurologic condition that limits movement: No Developmental delay - Moderate to Severe: No Recent (within past 2 weeks) or current : No Morbid Obesity (>100 pounds over ideal weight): No Obesity Comment: Height 4 feet 11 inches 110 pounds - Objective Temperature: 98.6 F Pulse Rate: 80 Respiratory Rate: 16 Blood Pressure: 110/56 O2 Sat by Pulse Oximetry: 97 Objective: Given above, testing performed: If Testing Performed: Test Specimen Type Sent to General - General Information source: Patient Notes: Patient here at [facility] for cover testing patient reports father was admitted on Thursday positive for COVID patient has been around him caring for him. Patient denies any symptoms at this point. Patient also does not have any local PCP. - Related Data Allergies/Adverse Reactions: No Known Allergies Allergy (Verified 12/04/19 12:56) Past Medical History - General Information source: Patient - Social History Smoking Status: Never Smoker Family History: None Physical Exam - General General appearance: Appears well, Alert In distress: None Notes: PHYSICAL EXAMINATION: GENERAL: Well-appearing and in no acute distress. HEAD: Atraumatic, normocephalic. EYES: sclera anicteric, conjunctiva are normal. ENT: nares patent. Moist mucous membranes. NECK: Normal range of motion, supple without lymphadenopathy LUNGS: CTAB and equal. No wheezes rales or rhonchi. Respirations even and unlabored lung sounds clear. HEART: Regular rate and rhythm without murmurs ABDOMEN: Soft, nontender, normal bowel sounds, no guarding. EXTREMITIES: Normal range of motion, no pitting edema. No cyanosis. NEUROLOGICAL: Cranial nerves grossly intact. Normal speech. Normal gait. PSYCH: Normal mood, normal affect. SKIN: Warm, Dry, normal turgor, no rashes or lesions noted Diagnostic Results Laboratory Results: Pending COVID testing results. Patient provided instructions regarding COVID to include: As a person under investigation for Covid 19, the [facility], division of public health advises you to adhere to the following guidance until your test results are reported to you. If your test result is positive, you will receive additional information from your provider and your local health department at that time. Remain at home until you are cleared by the health provider or public health authorities. Keep a log of visitors to your home, notify any visitors to your home of your isolation status. If you plan to move to a new address or leave the psychiatric hospital, notify the local health department in your County. Call your doctor or seek care if you have an urgent medical need. Before seeking medical care, call ahead to get instructions from the provider before arriving at the medical office clinic or hospital. Notify them that you are being tested for the virus that causes Covid 19 so that arrangements can be made, as necessary, to prevent transmission to others in the healthcare setting. Next, notify the local health department in your county. If a medical emergency arises and you need to call 911, inform the first responders that you are being tested for the virus that causes Covid 19. Next, notify the local health department in your psychiatric hospital. Patient Education/Counseling Counseling/Education: Patient presents with upper respiratory symptoms worrisome for possible Covid 19. Patient does not have emergency worring symptoms such as difficulty breathing, shortness of breath, chest pain, pressure, confusion or cyanosis. Patient appears suitable for discharge. Patient instructed to go to urgent care or ED for any change or worsening in condition. Patient's vital signs are stable and patient is nontoxic in appearance. Good return precautions have been discussed with patient, patient verbalized understanding and is agreeable with discharge plan of care at this time. [facility] Discharge - Discharge Clinical Impression: Encounter for screening laboratory testing for COVID-19 virus in asymptomatic patient Condition: Stable Disposition: Home; Selfcare
[2020-08-10 09:50] VITALS: BP 110/56
== END ==
LOC: RDC 09:08
PROVIDERS: ATTEND Nurse Practitioner Family
DX: U07.1 COVID-19 (principal)
CPT/HCPCS: 87635; 99201; 99211; C9803

== ENCOUNTER 2020-10-31 06:21 | Emergency (ER) | payer SELFPAY ==
[2020-10-31 06:30] VITALS: BP 121/66
[2020-10-31 07:11] LABS: ABSOLUTE EOSINOPHILS # (AUTO) 0.1 10^3/uL (0.0-0.6); ABSOLUTE LYMPHOCYTES (AUTO) 2.3 10^3/uL (0.5-4.7); ABSOLUTE MONOCYTES (AUTO) 0.6 10^3/uL (0.1-1.4); BASOPHILS % (AUTO) 0.5 % (0-2); EOSINOPHILS % (AUTO) 0.9 % (0-6); HEMATOCRIT 35.3 % (36.0-47.0); HEMOGLOBIN 11.2 g/dL (12.0-15.5); LYMPHOCYTES % (AUTO) 28.6 % (13-45); MEAN CORPUSCULAR HEMOGLOBIN 22.8 pg (27.0-33.4); MEAN CORPUSCULAR HGB CONC 31.6 g/dL (32.0-36.0); MEAN CORPUSCULAR VOLUME 72 fl (80-97); MONOCYTES % (AUTO) 7.9 % (3-13); PLATELET COUNT 325 10^3/uL (150-450); RED CELL DISTRIBUTION WIDTH 18.6 % (11.5-14.0); SEGMENTED NEUTROPHILS % (AUTO) 62.1 % (42-78); TOTAL CELLS COUNTED % (AUTO) 100 %
[2020-10-31 07:14] LABS: APPEARANCE,URINE CLOUDY; BILIRUBIN,URINE NEGATIVE (NEGATIVE); COLOR,URINE YELLOW; GLUCOSE, URINE NEGATIVE (NEGATIVE); KETONES,URINE NEGATIVE (NEGATIVE); LEUKOCYTE ESTERASE,URINE LARGE (NEGATIVE); NITRITE,URINE NEGATIVE (NEGATIVE); PROTEIN,URINE 30 mg/dL (NEGATIVE); URINE SPECIFIC GRAVITY 1.028; UROBILINOGEN,URINE NEGATIVE mg/dL (<2.0)
[2020-10-31 07:29] LABS: ALBUMIN 4.3 g/dL (3.5-5.0); ALKALINE PHOSPHATASE 94 U/L (38-126); ANION GAP 8 (5-19); ASPARTATE AMINO TRANSFERASE 20 U/L (14-36); BILIRUBIN,DIRECT 0.1 mg/dL (0.0-0.4); BILIRUBIN,TOTAL 0.6 mg/dL (0.2-1.3); BLOOD UREA NITROGEN 13 mg/dL (7-20); CALCIUM 9.7 mg/dL (8.4-10.2); CARBON DIOXIDE 26 mmol/L (22-30); CHLORIDE 107 mmol/L (98-107); GLUCOSE 95 mg/dL (75-110); POTASSIUM 4.3 mmol/L (3.6-5.0); TOTAL PROTEIN 7.5 g/dL (6.3-8.2)
--- NOTE | 2020-10-31 10:20 | ER Document Report ---
ED General - General Chief Complaint: Abdominal Pain Stated Complaint: ABDOMINAL PAIN Time Seen by Provider: 10/31/20 08:47 Notes: 25-year-old female presents with 3 weeks of intermittent abdominal discomfort eating fine no nausea vomiting intermittent, which has been worse in the mornings. Positive breast pain and tenderness. Think she is . No vaginal discharge or bleeding, no prior dental surgeries no fevers.. No dysuria hematuria frequency urgency back pain. TRAVEL OUTSIDE OF THE [place] IN LAST 30 DAYS: No - Related Data Allergies/Adverse Reactions: No Known Allergies Allergy (Verified 10/31/20 06:37) Past Medical History - General Information source: Patient - Social History Smoking Status: Never Smoker Frequency of alcohol use: None Drug Abuse: None Family History: None Review of Systems - Review of Systems Notes: REVIEW OF SYSTEMS GEN: Denies fever, chills, weight loss ENT: Denies sore throat, nasal discharge, ear pain EYES: Denies blurry vision, eye pain, discharge CV: Denies chest pain, palpitations, edema RESP: Denies cough, shortness of breath, wheezing GI: Resolved nausea and vomiting, amenorrhea SKIN: Denies rash, skin lesions LYMPH: Denies swollen glands/lymph nodes NEURO: Denies headache, focal weakness or numbness, dizziness PSYCH: Denies depression, suicidal or homicidal ideation PHYSICAL EXAMINATION General: No acute distress, well-nourished Head: Atraumatic, normocephalic ENT: Mouth normal, oropharynx moist, no exudates or tonsillar enlargement Eyes: Conjunctiva normal, pupils equal, lids normal Neck: No JVD, supple, no guarding CVS: Normal rate, regular rhythm, no murmurs Resp: No resp distress, equal and normal breath sounds bilaterally GI: Nondistended, soft, no tenderness to palpation, no rebound or guarding Ext: No deformities, no edema, normal range of motion in upper and lower ext Back: No CVA or midline TTP Skin: No rash, warm Lymphatic: No lymphadeopathy noted Neuro: Awake, alert. Face symmetric. GCS 15. Physical Exam - Vital signs Vitals: Temp Pulse Resp BP Pulse Ox 98.4 F 83 16 121/66 98 10/31/20 06:29 10/31/20 06:29 10/31/20 06:29 10/31/20 06:29 10/31/20 06:29 Course - Re-evaluation Re-evalutation: 10/31/20 10:19 Indolent lower abdominal pain with no tenderness normal vital signs preserved appetite no signs of acute abdomen on exam normal labs contaminated urine but no signs of UTI and not Ovarian cyst versus an amatory cycle more likely. Referred to primary care, for possible hormone regulation/evaluation. I have discussed with the patient there likely diagnosis, aftercare plan, follow-up plans and my usual and customary return precautions. They verbalized understanding of this. - Vital Signs Vital signs: Temp Pulse Resp BP Pulse Ox 98.4 F 83 16 121/66 98 10/31/20 06:29 10/31/20 06:29 10/31/20 06:29 10/31/20 06:29 10/31/20 06:29 - Laboratory Results Result Diagrams: 10/31/20 06:46 10/31/20 06:46 Laboratory Results Interpreted: 10/31/20 10/31/20 06:46 06:46 Hgb 11.2 L Hct 35.3 L MCV 72 L MCH 22.8 L MCHC 31.6 L RDW 18.6 H Urine Protein 30 H Urine Blood SMALL H Ur Leukocyte Esterase LARGE H Critical Laboratory Results Reviewed: No Critical Results - Radiology Results Critical Radiology Results Reviewed: No Critical Results Discharge - Discharge Clinical Impression: Lower abdominal pain Condition: Good Disposition: HOME, SELF-CARE Instructions: Abdominal Pain ([facility])
[2020-10-31 12:10] LABS: CHLAM PCR NOT DETECTED (NOT DETECT)
== END 2020-10-31 11:16 | disposition home or self-care (01) ==
LOC: ER 06:21
DX: R10.30 Lower abdominal pain, unspecified (principal); N64.4 Mastodynia
CPT/HCPCS: 36415; 80053; 81001; 81025; 83690; 84702; 85025; 87491; 87591; 99283